=== PATIENT | male | born 1960 | race Two or more races ===

== ENCOUNTER → 2023-10-17 | Emergency (ER) | payer OTHER ==
[~2023-10-17] VITALS: Ht 170.2 cm; Wt 75.7 kg
[~2023-10-17] MED LIST: COZAAR25 MG PO; LIPITOR40 M1 PO; METFORMIN HCL500 M3
== END | disposition left against medical advice (07) ==
LOC: ER 22:36
DX: Z53.21 Procedure and treatment not carried out due to patient leaving prior to being seen by health care provider (principal)